=== PATIENT | female | born 1990 | race Caucasian/White ===

== ENCOUNTER 2019-08-10 13:31 | Emergency (ER) | payer BC ==
[~2019-08-10] VITALS: Ht 152.4 cm; Wt 103.9 kg
[2019-08-10] MEDS ORDERED: NORCO 5-325 TA1 EAC1 PO (14:07)
[2019-08-10] MEDS ORDERED: AUGMENTIN 875-1 EACH PO (14:07)
[2019-08-10] MEDS ORDERED: IBUPROFEN 800800 M1 PO (14:07)
[2019-08-10] MEDS ORDERED: TYLENOL WITH CO1 TA1 PO (14:22)
[2019-08-10 14:42] VITALS: BP 159/96
== END 2019-08-10 14:43 | disposition home or self-care (01) ==
LOC: M.ERS 13:31
DX: H66.92 Otitis media, unspecified, left ear (principal)

== ENCOUNTER 2019-10-10 11:26 | Emergency (ER) | payer OTHER ==
[~2019-10-10] VITALS: Ht 154.9 cm; Wt 99.8 kg
[~2019-10-10 11:26] MED LIST: AUGMENTIN 875-1 EACH PO; IBUPROFEN 800800 M1 PO; NORCO 5-325 TA1 EAC1 PO; TYLENOL WITH CO1 TA1 PO
[2019-10-10 13:32] VITALS: BP 125/81
[2019-10-10 13:50] LABS: INFLUENZA A ANTIGEN Negative (Negative); INFLUENZA B ANTIGEN Negative (Negative)
== END 2019-10-10 13:32 | disposition home or self-care (01) ==
LOC: M.ERS 11:26
PROVIDERS: Family Medicine
DX: J06.9 Acute upper respiratory infection, unspecified (principal)